=== PATIENT | male | born 1945 | race Caucasian/White ===

== ENCOUNTER → 2024-05-15 10:52 | Outpatient (REF) | payer MEDICARE, BC, SELFPAY | LOC: HWRAD 10:52 | PROVIDERS: ATTENDING PHYSICIAN Family Medicine | DX: M54.59 Other low back pain (principal); G89.29 Other chronic pain | CPT/HCPCS: 72110 ==

== ENCOUNTER 2024-05-20 16:29 | Emergency (ER) | payer MEDICARE, BC, SELFPAY ==
[2024-05-20 16:40] VITALS: BP 153/85
[2024-05-20 17:00] LABS: % Basophils 0.8 % (0-2); % Eosinophils 1.7 % (0-6); % Immature Granulocytes 0.3 % (0-0.5); % Lymphocytes 30.6 % (20.5-51.1); % Neutrophils 57.6 % (42.2-75.2); Absolute Basophils 0.1 10^3/uL (0-0.2); Absolute Eosinophils 0.1 10^3/uL (0-0.7); Absolute Lymphocytes 2.4 10^3/uL (1.2-3.4); Absolute Monocytes 0.7 10^3/uL (0.1-0.6); Absolute Neutrophils 4.5 10^3/uL (1.4-6.5); Hematocrit 48.4 % (39.0-52.0); Hemoglobin 16.1 g/dL (13.0-18.0); Mean Corp Hgb Conc. 33.3 g/dL (33.0-37.0); Mean Corpuscular Hgb 28.2 pg (27.0-31.0); Mean Corpuscular Volume 84.9 fL (80.0-94.0); Mean Platelet Volume 10.1 fL (7.4-10.4); Nucleated Red Blood Cells % 0 % (-); Platelet Count 236 10^3/uL (130-400); White Blood Cell Count 7.9 10^3/uL (4.8-10.8)
[2024-05-20 17:26] LABS: ALT (SGPT) 24 U/L (0-50); AST (SGOT) 21 U/L (17-59); Albumin 4.4 g/dl (3.5-5.0); Alkaline Phosphatase 76 U/L (38-126); Blood Urea Nitrogen 16 mg/dl (9-20); Carbon Dioxide 28 mmol/L (22-30); Chloride 101 mmol/L (98-107); Glucose 187 mg/dl (70-99); Potassium 4.8 mmol/L (3.5-5.1); Sodium 141 mmol/L (135-145); Total Bilirubin 0.4 mg/dl (0.2-1.3); Total Protein 7.3 g/dl (6.3-8.2); eGFR > 60.00
[2024-05-20 18:23] VITALS: BP 132/82
--- NOTE | 2024-05-20 19:23 | ED.GENMED ---
History of Present Illness
General
Chief Complaint: Dizziness
Source: patient
Exam Limitations: none
Time Seen by Provider: 05/20/24 19:21
History of Present Illness
History of Present Illness:
See MDM
Past History
Past History
ED Past Medical History: None
ED Past Surgical History: Tonsilectomy
Social History
Tobacco: Non-smoker
Alcohol: None
Phy Exam
Physical Exam
Physical Exam:
See MDM
Course
Orders/Labs/Results
Orders:
Orders
05/20/24 16:44
Electrocardiogram (*1) Urgent
Reason for Study: Vertigo / Dizzy
CT Head W/o Iv Contrast Urgent
Comment: unsteady gait
Reason For Exam: dizziness,drainage from left ear
05/20/24 16:45
EKG- Treatment ONCE
05/20/24 16:50
Complete Blood Count/With Diff Urgent
Comprehensive Metabolic Panel Urgent
05/20/24 19:28
Neomycin/Polymyxin/Hc [Cortisporin Otic Suspension] See Dose Instructions OTIC NOW STA
05/20/24 20:08
Clindamycin HCl [Cleocin] 300 mg PO NOW STA
Abnormal Lab Results
05/20/24
16:50
Absolute Monos (auto) 0.7 H 10^3/uL
(0.1-0.6)
Glucose 187 H mg/dl
(70-99)
05/20/24 16:50
05/20/24 16:50
Vital Signs
Initial and Last Documented VS:
Initial Vital Signs
Temp Pulse Resp BP Pulse Ox
98.2 F 79 16 153/85 98
05/20/24 16:40 05/20/24 16:40 05/20/24 16:40 05/20/24 16:40 05/20/24 16:40
Last Documented Vital Signs
Temp Pulse Resp BP Pulse Ox
98.2 F 70 16 132/82 97
05/20/24 16:40 05/20/24 18:23 05/20/24 16:40 05/20/24 18:23 05/20/24 18:23
MDM/Problems Addressed
Differential Diagnosis Includes:
HPI and MDM Narrative:
78-year-old male presenting for evaluation of dizziness and drainage in his left ear. This has been ongoing for the past few days. He went to urgent care and examined in the emergency department for CT rule out stroke. On arrival, patient
dizziness is much improved. He is on swab in his left ear for yellow. He states he has had issues like this in the past requiring drops. He has ENT follow-up in a few weeks
Prior to my exam, blood work and CT were already performed. Blood work, EKG and CT head without acute abnormality. He has no cerebellar signs. Extremely well-appearing toxic. He has drainage from his left ear. Ear exam is consistent with otitis
externa. The TM was obscured but appears to be intact and pale
Physical exam
General: Well appearing and non-toxic
HEENT: protecting airway. Drainage from left ear. Left otitis externa. No obvious TM perforation noted
Neck: supple
CV: No evidence of cyanosis. Regular rate and rhythm
Resp: No accessory muscle use
Abd: Non-distended
Extremities: No deformities
Neuro: alert. Normal finger-nose bilaterally
Psych: Normal affect
Skin: Intact
Problems Addressed including Acute and Chronic Conditions affecting care:
1. Otitis externa
Acuity: acute
Prognosis: stable
Details: Will start Cortisporin drops. He has ENT follow-up in a few weeks
2. Dizziness
Acuity: acute
Prognosis: stable
Details: Likely in setting of ear infection. Has no cerebellar signs. CT head negative
Update:
CT shows concern for mastoiditis. Clinically, there is no evidence of mastoiditis. Case discussed with ENT. Patient likely has otitis media with perforation. Will start clindamycin. Patient does not want to stay and understands risks involved
Differential Diagnosis (but not limited to): Otitis externa, otitis media, sinusitis, CVA
Testing considered: CT angiogram head
Drug therapy (if applicable): OTC meds, please see d/c instruction regarding Rx drugs
Amount and/or Complexity of Data Reviewed
Clinical info obtained from: Patient
External data reviewed: N/A
Labs I independently reviewed (but not limited to): White blood cell count normal
Radiology: The CT scan was personally and independently reviewed. In addition, official CT report reviewed.
Pulse Ox: not hypoxic
EKG independently reviewed: sinus rhythm, normal axis, no STEMI
Community Health Worker: N/A
Critical Care: N/A
Risk of Complication:
Social Determinants of health: Good social support
Discussed with other providers: ENT
Escalation of Care includes Admit/Obs: After being observed in the Emergency Department, pt stable for discharge.
Occasional wrong word or 'sound a like' substitutions may have occurred due to the inherent limitations of voice recognition software. Read the chart carefully and recognize, using context, where substitutions have occurred.
*Critical Care Note
Total Time (30-74mins, 75-104mins- exclusive of procedures): Not Applicable
ED Attending Note
-
Portions of this chart may have been created with voice recognition software.� Occasional wrong word or��sound alike� substitutions may have occurred due to the inherent limitations of voice recognition software.
Discharge Plan
Departure
Patient Disposition: Home (Routine Discharge)
Date of Disposition: 05/20/24
Time of Disposition: 20:24
Patient with high blood pressure during this ER visit?: No
Discharge Problem:
Otitis externa, Acute mastoiditis
Instructions: Mastoiditis, Outer Ear Infection ED
Prescriptions:
New
clindamycin HCl 300 mg capsule
300 mg PO TID 10 Days Qty: 30 0RF
Referrals:
Galo Sinha Jr., DO [Family Provider] -
Activity Restrictions/Additional Instructions:
Please return for any worsening symptoms.
You may return at any time if you have further concerns.
Please follow up with your doctor at the first available appointment, preferably this week.
Please use 4 drops in your left ear 3-4 times a day for the next week.
Please take the antibiotics as prescribed.
ENT is aware that you are here today. Please call the office. They may be able to see you sooner.
Thank you for choosing [facility] [place].
Interventions
Interventions:
*Risk Screen - Suicide Last Done: 05/20/24 16:40
*Neglect/Abuse Screening Last Done: 05/20/24 16:40
Discharge Date and Time
Print Language: PORTUGUESE
[2024-05-20] MEDS: CORTISPORIN OTIC SUSPENSION 4 DROP OTIC (19:37)
[2024-05-20] MEDS: CLEOCIN 300 MG PO (20:15)
== END 2024-05-20 20:35 | disposition home or self-care (01) ==
LOC: EMR 16:29
PROVIDERS: Student in an Organized Health Care Education/Training Program; EMERGENCY PHYSICIAN Student in an Organized Health Care Education/Training Program; FAMILY PHYSICIAN Family Medicine
DX: H60.502 Unspecified acute noninfective otitis externa, left ear (principal); H70.92 Unspecified mastoiditis, left ear
CPT/HCPCS: 99284; 70450; 80053; 85025; 93005

== ENCOUNTER → 2025-05-22 10:14 | Outpatient (REF) | payer MEDICARE, BC, SELFPAY | LOC: HWRAD 10:14 | PROVIDERS: ATTENDING PHYSICIAN Family Medicine | DX: M54.50 Low back pain, unspecified (principal); M25.561 Pain in right knee; M25.562 Pain in left knee; M79.672 Pain in left foot; M79.671 Pain in right foot; M25.511 Pain in right shoulder; M25.512 Pain in left shoulder | CPT/HCPCS: 72110; 73030; 73564; 73630 ==